=== PATIENT | female | born 1950 | race Caucasian/White ===

== ENCOUNTER 2020-07-05 17:03 | Emergency (ER) | payer MEDICARE ==
[~2020-07-05] VITALS: Ht 167.6 cm; Wt 106.8 kg
[2020-07-05 17:48] LABS: BASOPHILS % (AUTO) 0 % (0-1); EOSINOPHILS % (AUTO) 3 % (1-7); LYMPHOCYTES % (AUTO) 25 % (22-44); MEAN CORPUSCULAR HEMOGLOBIN 31.3 pg (27.0-34.8); MEAN CORPUSCULAR HGB CONC 33.7 g/dL (32.4-35.8); MEAN PLATELET VOLUME 8.9 fL (7.4-10.4); MONOCYTES % (AUTO) 10 % (2-9); NEUTROPHILS % (AUTO) 62 % (42-75); PLATELET COUNT 157 x10^3/uL (130-400); RED BLOOD COUNT 4.05 x10^6/uL (3.82-5.3); RED CELL DISTRIBUTION WIDTH 14.3 % (9.6-15.2)
[2020-07-05 17:49] LABS: MD NO
[2020-07-05 17:59] LABS: ALANINE AMINOTRANSFERASE 26 U/L (12-78); ALBUMIN 3.4 g/dL (3.4-5.0); ANION GAP 6 mmol/L (5-15); CHLORIDE 111 mmol/L (98-107)
--- NOTE | 2020-07-05 18:00 | NUR ---
PATIENT IS A 70F WHO LIVES IN [place]. SHE HAS BEEN EXPERIENCING VAGINAL BLEEDING, LOWER ABDOMINAL TENDERNESS AND "JUICY STUFF COMING FROM HER VAGINA" FOR 1.5 MONTHS. SHE IS HERE TODAY BECAUSE THERE WAS A LOT MORE BLOOD THAN THERE HAD BEEN BEFORE. SHE DOES NOT APPEAR TO BE IN DISTRESS AND IS JOKING WITH HER WHO IS AT THE BEDSIDE. CALL LIGHT WITHIN REACH, CYCLING VITALS AND CONTINUOUS SPO2.
[2020-07-05 18:01] LABS: ALKALINE PHOSPHATASE 74 U/L (45-117); BILIRUBIN,TOTAL 0.3 mg/dL (0.2-1.0); TOTAL PROTEIN 6.6 g/dL (6.4-8.2)
--- NOTE | 2020-07-05 18:19 | NUR ---
PATIENT AND TO ULTRASOUND.
--- NOTE | 2020-07-05 18:48 | NUR ---
RECEIVED REPORT FROM CLAUDIA GUZMÁN TO ASSUME CARE OF PT. PT. CURRENTLY OUT OF ROOM IN US. WILL COMPLETE STRAIGHT CATH UPON RETURN.
--- NOTE | 2020-07-05 18:49 | NUR ---
Report to Rommel TAYLOR for shift change.
--- NOTE | 2020-07-05 19:17 | NUR ---
PT. HAD PROVIDED CLEAN CATCH UA; DISCUSSED WITH KATHRYN GALVAN. OK TO SENT CLEAN CATCH AT THIS TIME PER COLE. URINE SENT. VS UPDATED. AT BS FOR SUPPORT. CALL LIGHT IN REACH. PT. DENIES NEEDS.
[2020-07-05 19:27] LABS: MICROSCOPIC AUTO
--- NOTE | 2020-07-05 20:02 | NUR ---
CHART UP FOR RECHECK BY ERP AT THIS TIME. PT. DENIES NEEDS.
[2020-07-05 20:09] VITALS: BP 169/93
--- NOTE | 2020-07-05 20:33 | NUR ---
PT. AMBULATORY TO BR WITH STEADY GAIT.
== END 2020-07-05 21:55 | disposition home or self-care (01) ==
LOC: ED 21:49
DX: N93.8 Other specified abnormal uterine and vaginal bleeding (principal)
CPT/HCPCS: 36415; 76830; 80053; 81001; 85025; 87086; 99284